=== PATIENT | female | born 1990 | race Caucasian/White ===

== ENCOUNTER 2021-12-28 10:09 | Outpatient (CLI) | payer OTHER | END 2021-12-28 10:35 | disposition home or self-care (01) | LOC: NST 10:09 | PROVIDERS: ATTEND Obstetrics & Gynecology Maternal & Fetal Medicine | DX: Z34.83 Encounter for supervision of other normal pregnancy, third trimester (principal) ==

== ENCOUNTER 2022-01-02 13:00 | Inpatient (IN) | payer OTHER ==
[~2022-01-02] VITALS: Ht 152.4 cm; Wt 63.5 kg
[2022-01-02] MEDS ORDERED: PRENATAL TABLE1 EAC3 PO (20:27)
== END 2022-01-05 13:38 | disposition home or self-care (01) | DRG 768 ==
LOC: LDR 19:19 → OB/GYN 01-03 20:29 → LDR 01-05 13:00 → OB/GYN 01-05 13:38
PROVIDERS: ADMIT Obstetrics & Gynecology; ATTEND Obstetrics & Gynecology
PROC: 4A1HXCZ Monitoring of Products of Conception, Cardiac Rate, External Approach (ICD-10-PCS; 2022-01-02)
PROC: 10D07Z6 Extraction of Products of Conception, Vacuum, Via Natural or Artificial Opening (ICD-10-PCS; principal; 2022-01-03)
PROC: 0DQR0ZZ Repair Anal Sphincter, Open Approach (ICD-10-PCS; 2022-01-03)
PROC: 0W8NXZZ Division of Female Perineum, External Approach (ICD-10-PCS; 2022-01-03)
DX: O70.21 Third degree perineal laceration during delivery, IIIa (principal); Z37.0 Single live birth; Z3A.39 39 weeks gestation of pregnancy; Z20.822 Contact with and (suspected) exposure to COVID-19